=== PATIENT | female | born 1990 ===

== ENCOUNTER 2016-11-27 14:20 | Inpatient (IN) | payer BC, OTHER ==
--- NOTE | 2016-11-27 15:13 | OBHP ---
Datetime: 11/27/2016 15:07 IP Adm Impression: Term, intrauterine ; No Active Labor; Ruptured Membranes IP Admit Plan: Admit to unit; Initiate labor protocol Admit Comment, IP Provider: at 38.2weeks came with c/o decreased movements from few hrs. pt had a sonogrm and decreased fluid. 4. pt c/o leakage of discharge obhx primi pmh den med pnv all nkda psh de soch den ssse min pooling,+nitrazine possible high leak a/p at 38.2weeks oligohyraminos/dec fm/r/o rom admit to l_d npo/ivf labs cervidil cont timothy and efm pain management anticipayte . Pelvic Type - PN: Adequate Extremities - PN: Normal Abdomen - PN: Normal Back - PN: Normal Breast - PN: Normal Lungs - PN: Normal Heart - PN: Normal Thyroid - PN: Normal Neurologic - PN: Normal HEENT - PN: Normal General - PN: Normal FHR - Baseline A Provider: 130 Membranes, Provider: Ruptured Contraction Comments Provider: q1-5 Comments, ACOG Physical Exam: gravid,non tender ext no edemqa,no calf ten sse +pooling,+nitrazine Nitrazine Provider: Positive IP Hx Assessment: The History has been Reviewed and is Current EGA AdmitDate IP: 38.2 Vital Signs Provider: Reviewed; Within Normal Limits IP Chief Complaint: Suspected ruptured membranes; Decreased movement NICHD Variability Prov Fetus A: Moderate 6-25bpm NICHD Accel Fetus A IP Provider: [id number] FHR Category Provider Fetus A: Category I Dilatation, Provider: 1 Effacement, Provider: 50 Station, Provider: -3 Genitourinary Exam: Normal DTRs - PN: Normal
[2016-11-27 15:15] VITALS: BMI 25.4
[2016-11-27] MEDS ORDERED: Lactated Ringer's 1,000 ML IV SCH (15:15)
[2016-11-27] MEDS ORDERED: Nalbuphine 20 mg/ml Inj (1 ml) IVP PRN (15:30)
[2016-11-27 15:38] LABS: BASO # 0.1 K/uL (0.0-0.2); BASO % 0.8 % (0.0-2.0); EOS # 0.1 K/uL (0.0-0.7); HEMATOCRIT 33.2 % (34.0-47.0); LYMPH # 2.5 K/uL (1.0-4.3); LYMPH % 21.5 % (20.0-40.0); MEAN CELL VOLUME 82.9 fL (81.0-99.0); MEAN CORPUSCULAR HEMOGLOBIN 26.7 pg (27.0-31.0); MEAN CORPUSCULAR HGB CONC 32.2 g/dL (33.0-37.0); MEAN PLATELET VOLUME 10.5 fL (7.2-11.7); MONO # 1.1 K/uL (0.0-0.8); MONO % 9.4 % (0.0-10.0); NRBC % 0.1 % (0.0-2.0); RED CELL DISTRIBUTION WIDTH 16.8 % (11.5-14.5); WHITE BLOOD COUNT 11.5 K/uL (4.8-10.8)
[2016-11-27 15:44] LABS: CHLORIDE 105 mmol/L (98-107)
[2016-11-27 15:45] LABS: SODIUM 134 mmol/L (132-148)
[2016-11-27 15:46] LABS: POTASSIUM 4.3 mmol/L (3.6-5.2)
[2016-11-27 15:48] LABS: ALB/GLOB RATIO 0.9 (1.0-2.1); ALKALINE PHOSPHATASE 168 U/L (38-126); AST/SGOT 25 U/L (14-36); BILIRUBIN,TOTAL 0.3 mg/dL (0.2-1.3); BLOOD UREA NITROGEN 11 mg/dL (7-17); CARBON DIOXIDE 17 mmol/L (22-30); GFR AFRICAN-AMERICAN > 60; TOTAL PROTEIN 6.8 g/dL (6.3-8.3)
[2016-11-27 15:49] LABS: ALT/SGPT 26 U/L (9-52); CALCIUM 8.7 mg/dl (8.6-10.4); GLUCOSE,RANDOM 74 mg/dL (65-105)
[2016-11-27] MEDS ORDERED: Nalbuphine 20 mg/ml Inj (1 ml) ONE (20:00)
--- NOTE | 2016-11-27 20:34 | OBPN ---
Datetime: 11/27/2016 20:32 IP Progress Impression: Normal progression of labor IP Procedures: Sterile Vag Exam Contraction Comments Provider: q1-4 FHR - Baseline A Provider: 130 IP Progress Note Comment: pt was examned at bed side ve 2/80/-2 cervidil in placed cont timothy and efm anticipate Vital Signs Provider: Reviewed; Within Normal Limits NICHD Variability Prov Fetus A: Moderate 6-25bpm Dilatation, Provider: 2 Effacement, Provider: 80 Station, Provider: -2 Datetime: 11/27/2016 15:07 Nitrazine Provider: Positive Membranes, Provider: Ruptured NICHD Accel Fetus A IP Provider: [id number] FHR Category Provider Fetus A: Category I
[2016-11-28] MEDS ORDERED: Oxytocin 30 UNIT 30 UNITS/500 ML BAG IV PRN (01:39)
--- NOTE | 2016-11-28 01:39 | OBPN ---
Datetime: 11/28/2016 01:35 IP Progress Plan Other: cervidil removed IP Procedures: Sterile Vag Exam FHR - Baseline A Provider: 130 IP Progress Note Comment: pt was examined at bed side ve 270/-2 cervidil removed will start pitocin anticipate Vital Signs Provider: Reviewed NICHD Accel Fetus A IP Provider: [id number] FHR Category Provider Fetus A: Category I NICHD Variability Prov Fetus A: Moderate 6-25bpm Dilatation, Provider: 2 Effacement, Provider: 70 Station, Provider: -2
[2016-11-28] MEDS ORDERED: AMPicillin 2 GM in Sodium Chloride 0.9% 100 ML IVPB STA (03:48)
--- NOTE | 2016-11-28 03:51 | OBPN ---
Datetime: 11/28/2016 03:49 IP Procedures: Sterile Vag Exam Contraction Comments Provider: q1-4 FHR - Baseline A Provider: 170 IP Progress Note Comment: pt was examined at bed side. fhr 170 mod zac with variables ve 3/70/-2 forebag ruptured. pitocin stoppped. bolus of fluid ampicillin tylenol supposityry cont close observ NICHD Variability Prov Fetus A: Moderate 6-25bpm NICHD Decel Fetus A IP Provider: Variable
[2016-11-28] MEDS ORDERED: Dextrose 5%/Lactated Ringer's 1,000 ML IV SCH (04:00)
[2016-11-28] MEDS ORDERED: Bupivacaine 0.125%/FentaNYL 200 ML EPI ONE (06:38)
--- NOTE | 2016-11-28 06:50 | OBPN ---
Datetime: 11/28/2016 06:43 IP Procedures: Sterile Vag Exam Contraction Comments Provider: irrg FHR - Baseline A Provider: 170 IP Progress Note Comment: pt was examined after epidural. ve 4/80/-2 temp 99.4f fhr 160-170 mod zac. fhr was better after tylenol and ampicillin. cont pitocin anticipate Vital Signs Provider: Reviewed; Within Normal Limits NICHD Variability Prov Fetus A: Moderate 6-25bpm Dilatation, Provider: 4 Effacement, Provider: 80 Station, Provider: -2 NICHD Decel Fetus A IP Provider: Variable
--- NOTE | 2016-11-28 07:42 | OBPN ---
Datetime: 11/28/2016 07:40 IP Procedures: Sterile Vag Exam FHR - Baseline A Provider: 150 IP Progress Note Comment: pt was seen at bed side fhr 150 mod zac with variable ve 4/80/-1 plan cont pitocin cont ampicillin anticipate Vital Signs Provider: Reviewed; Within Normal Limits NICHD Variability Prov Fetus A: Moderate 6-25bpm Dilatation, Provider: 4 Effacement, Provider: 80 Station, Provider: -1
[2016-11-28] MEDS ORDERED: AMPicillin 1 GM in Sodium Chloride 0.9% 100 ML IVPB SCH ×2 (08:00→10:00)
[2016-11-28] MEDS ORDERED: Oxycodone/Acetaminophen 5/325 mg Tab PO PRN (08:55)
--- NOTE | 2016-11-28 08:55 | OBDS ---
DELIVERY PERSONNEL Delivery Doctor: Aaron Rivera MD Biological Science Technician: Melvin Resendiz RN Anesthesiologist: DR GRANADOS MATERNAL INFORMATION Delivery Anesthesia: Epidural Medications in Delivery: pitocin 30 units in 500 mls of NS Estimated Blood Loss (ml): 400 Placenta Cultured: No Maternal Complications: None Provider Comments: fredis devarun i alejandra with righ arm. cord gas done peads in the room weight 2200 gm co none endometrium done LABOR SUMMARY EDC: 12/09/2016 00:00 LABOR INFORMATION Onset of Labor: 11/27/2016 13:00 Cervical Ripening Agents: Cervidil Group B Beta Strep: Negative MEMBRANES Membranes Rupture Method: Artificial Rupture of Membranes: 11/27/2016 13:00 Amniotic Fluid Color: Clear Amniotic Fluid Amount: Small Amniotic Fluid Odor: Normal VAGINAL DELIVERY Episiotomy: None Laceration Extension: First Degree Laceration Type: Perineal Laceration Repair Note: repaired with 2 and 3 chromic BABY A INFORMATION Forceps: N/A Vacuum Extraction: N/A Shoulder Dystocia : No PRESENTATION/POSITION BABY A Presentation: Cephalic Cephalic Presentation: Vertex Vertex Position: Left Occipital Anterior Breech Presentation: N/A PLACENTA INFORMATION BABY A Placenta Method of Delivery: Spontaneous Placenta Status: Delivered WEIGHT/LENGTH BABY A Birthweight (gms): 2270 Weight (lb): 5 Infant Weight (oz): 0 CORD INFORMATION BABY A Nuchal Cord : N/A Infant Suction: Mouth; Nose BABY B INFORMATION Delivery Date/Time: 11/28/2016 08:35 Method of Delivery : Vaginal SHOULDER DYSTOCIA BABY B Delivery Date/Time: 11/28/2016 08:35
[2016-11-28] MEDS ORDERED: Oxytocin 30 UNIT 30 UNITS/500 ML BAG IV SCH (09:00)
[2016-11-29 08:14] LABS: HEMATOCRIT 24.3 % (34.0-47.0); MEAN CELL VOLUME 82.6 fL (81.0-99.0); MEAN CORPUSCULAR HEMOGLOBIN 26.7 pg (27.0-31.0); MEAN CORPUSCULAR HGB CONC 32.3 g/dL (33.0-37.0); MEAN PLATELET VOLUME 10.2 fL (7.2-11.7); RED CELL DISTRIBUTION WIDTH 16.9 % (11.5-14.5); WHITE BLOOD COUNT 14.9 K/uL (4.8-10.8)
--- NOTE | 2016-11-29 13:57 | OBPPN ---
Datetime: 11/29/2016 08:55 PP Pain Prov: Within normal limits PP Nausea Prov: Denies PP Flatus Prov: Yes PP Breasts Prov: Normal PP Heart Prov: Normal PP Lungs Prov: Normal PP Abdomen/Uterus Prov: Normal PP Lochia Prov: Normal PP Vulva/Perineum Prov: Normal PP CVA Tenderness Prov: Normal PP Extremities Prov: Normal PP Comments Phys Exam Prov: Abd: Soft,NT, BS- present UT- firm PP Impression Prov: Normal progression PP Plan Prov: Continue present management PP Progress Note Prov: S/P , PPD #1 Clinically Stable. Plan: COntinue care.
[2016-11-29 17:15] VITALS: O2SAT 98
--- NOTE | 2016-11-30 07:32 | OBDCSUM ---
Datetime: 11/30/2016 07:30 Discharged to, Provider: Home Follow up at, Provider: Dr Rivera Disch Instr Activity: Normal activity Disch Instr Diet: Regular Discharge Instructions, Provider: Routine instructions given Discharge Diagnosis, Provider: Term Delivered Discharge Time: 11/30/2016 07:30 Follow up in weeks, Provider: 6 weeks Disch Referrals: None Contraception discussed, Prov: Yes Discharge Comment, Provider: S/P Uncomplicated , Clinically Stable Discharge Diagnosis Prov Other: S/P Uncomplicated , Clinically Stable
--- NOTE | 2016-11-30 07:32 | OBPPN ---
Datetime: 11/30/2016 07:28 PP Pain Prov: Within normal limits PP Nausea Prov: Denies PP Flatus Prov: Yes PP Breasts Prov: Normal PP Heart Prov: Normal PP Lungs Prov: Normal PP Abdomen/Uterus Prov: Normal PP Lochia Prov: Normal PP Vulva/Perineum Prov: Normal PP CVA Tenderness Prov: Normal PP Extremities Prov: Normal PP Comments Phys Exam Prov: Abd: Soft, NT, BS - present UT- Well contraCTED PP Impression Prov: Normal progression PP Progress Note Prov: S/P ,PPD #2 Clinically Stable. Plan: D/C Home. F/U with Dr Rivera. Vital Signs Provider PP: Reviewed
[2016-11-30 08:08] VITALS: BP 121/74; PULSE 61; RESP 18; TEMP 98.5
== END 2016-11-30 13:10 | disposition home or self-care (01) | DRG 775 ==
LOC: C.EROB 14:20 → C.4D 15:10 → C.4M 11-28 10:55
PROVIDERS: ADMIT Specialist; ATTEND Specialist
PROC: 3E0P7GC Introduction of Other Therapeutic Substance into Female Reproductive, Via Natural or Artificial Opening (ICD-10-PCS; 2016-11-27)
PROC: 10E0XZZ Delivery of Products of Conception, External Approach (ICD-10-PCS; principal; 2016-11-28)
PROC: 0HQ9XZZ Repair Perineum Skin, External Approach (ICD-10-PCS; 2016-11-28)
PROC: 10907ZC Drainage of Amniotic Fluid, Therapeutic from Products of Conception, Via Natural or Artificial Opening (ICD-10-PCS; 2016-11-28)
DX: O36.8130 Decreased fetal movements, third trimester, not applicable or unspecified (principal); O41.03X0 Oligohydramnios, third trimester, not applicable or unspecified; O70.0 First degree perineal laceration during delivery; Z3A.38 38 weeks gestation of pregnancy; Z37.0 Single live birth